=== PATIENT | female | born 1965 | race Caucasian/White ===

== ENCOUNTER 2017-06-13 20:15 | Emergency (ER) | payer MEDICAID ==
[~2017-06-13] VITALS: Ht 165.1 cm; Wt 52.5 kg
[2017-06-13 20:43] LABS: BASOPHILS % (AUTO) 0.7 % (0.0-2.0); EOSINOPHILS % (AUTO) 0.7 % (1.0-6.0); HEMATOCRIT 26.2 % (36-46); HEMOGLOBIN 7.7 g/dL (12.0-16.0); LYMPHOCYTES # (AUTO) 1.6 K/uL (1.0-4.8); LYMPHOCYTES % (AUTO) 18.9 % (22.0-44.0); MEAN CORPUSCULAR HEMOGLOBIN 16.1 pg (26.0-34.0); MEAN CORPUSCULAR HGB CONC 29.6 G/dL (31.0-37.0); MEAN CORPUSCULAR VOLUME 55 fL (80-100); MONOCYTES # (AUTO) 0.6 K/uL (0.1-1.0); MONOCYTES % (AUTO) 7.7 % (2.0-9.0); NEUTROPHILS # (AUTO) 5.9 K/uL (1.8-7.7); PLATELET COUNT (AUTO) 306 K/uL (150-450); RED CELL DISTRIBUTION WIDTH 18.4 % (11.5-14.5)
[2017-06-13 21:01] LABS: ANION GAP 7 mmol/L (8-16); CALCIUM, TOTAL 8.4 mg/dL (8.8-10.5); CARBON DIOXIDE 28 mmol/L (22-29); CHLORIDE 103 mmol/L (98-107); CREATININE 0.55 mg/dL (0.60-1.30); GLOMERULAR FILTR. RATE CALC > 60 mL/min (>60); GLUCOSE,RANDOM 113 mg/dL (70-110); POTASSIUM 3.4 mmol/L (3.5-5.1); SODIUM SERUM 138 mmol/L (136-145); UREA NITROGEN, BLOOD 7 mg/dL (7-18)
[2017-06-13 21:06] LABS: ALANINE AMINOTRANSFERASE 54 U/L (12-78); ALBUMIN 3.5 g/dL (3.4-5.0); ALKALINE PHOSPHATASE 117 U/L (46-116); ASPARTATE AMINOTRANSFERASE 105 U/L (15-37); BILIRUBIN,TOTAL 1.5 mg/dL (0.1-1.0); LIPASE 317 U/L (73-393); TOTAL PROTEIN, SERUM 7.1 g/dL (6.4-8.2)
[2017-06-13 21:20] LABS: APPEARANCE,URINE CLOUDY (CLEAR); BILIRUBIN,URINE NEGATIVE (NEGATIVE); GLUCOSE, URINE (UA) NEGATIVE (NEGATIVE); KETONES,URINE TRACE mg/dL (NEGATIVE); LEUKOCYTE ESTERASE ,URINE MODERATE (NEGATIVE); NITRATE,URINE NEGATIVE (NEGATIVE); OCCULT BLOOD,URINE TRACE (NEGATIVE); PROTEIN,URINE POS 1+ (NEGATIVE)
[2017-06-13] MEDS ORDERED: PB/HYOSCY/ATR/SCOP/LIDO/MAALOX 55 ML BOTTLE PO ONE (21:30)
[2017-06-13 21:31] LABS: BACTERIA,URINE Few /HPF (None Seen); SQUAMOUS EPITHELIAL CELL,UR Moderate /LPF (None Seen)
[2017-06-13 21:32] LABS: CALCIUM OXALATE CRYSTALS,UR Moderate /LPF (None Seen)
[2017-06-13] MEDS ORDERED: SOD FERRIC GLUC COMPLX/SUCROSE 125 MG in SODIUM CHLORIDE 0.9% 100 ML IV ONE (23:15)
[2017-06-13] MEDS ORDERED: DICYCLOMINE HCL 10 MG/ML 2 ML AMP IM ONE (23:30)
[2017-06-14 00:09] VITALS: BP 110/75
== END 2017-06-14 00:25 | disposition home or self-care (01) ==
LOC: EMS 20:16
DX: D64.9 Anemia, unspecified (principal); N39.0 Urinary tract infection, site not specified; R10.84 Generalized abdominal pain
CPT/HCPCS: 36415; 80053; 81001; 83690; 84703; 85025; 87077; 87086; 87186; 96365; 96372; 99284; J0500; J2916; J7050; Z7610; 86850; 86900; 86901

== ENCOUNTER 2019-04-27 23:16 | Inpatient (IN) | payer MEDICAID, OTHER ==
[~2019-04-27] VITALS: Ht 152.4 cm; Wt 51.5 kg
[~2019-04-27 23:16] MED LIST: ANUSHCS PR
[2019-04-27] MEDS ORDERED: 0.9% SODIUM CHLORIDE 10 ML SYRINGE IVP PRN (23:45)
[2019-04-28] VITALS (9 sets, daily range): BP systolic 96–140; BP diastolic 59–86
[2019-04-28 00:14] LABS: MONOCYTES # (AUTO) 0.5 K/uL (0.1-1.0)
[2019-04-28 00:18] LABS: BASOPHILS % (AUTO) 1.3 % (0.0-2.0); EOSINOPHILS % (AUTO) 1.9 % (1.0-6.0); HEMOGLOBIN 7.7 g/dL (12.0-16.0); LYMPHOCYTES # (AUTO) 2.4 K/uL (1.0-4.8); LYMPHOCYTES % (AUTO) 30.4 % (22.0-44.0); MEAN CORPUSCULAR HEMOGLOBIN 16.1 pg (26.0-34.0); MEAN CORPUSCULAR HGB CONC 29.6 G/dL (31.0-37.0); MEAN CORPUSCULAR VOLUME 54 fL (80-100); MONOCYTES % (AUTO) 5.9 % (2.0-9.0); NEUTROPHILS # (AUTO) 4.8 K/uL (1.8-7.7); NEUTROPHILS % (AUTO) 60.5 % (40.0-70.0); PLATELET COUNT (AUTO) 375 K/uL (150-450); RED BLOOD CELL COUNT(AUTO) 4.77 MIL/uL (4.00-5.20); RED CELL DISTRIBUTION WIDTH 20.1 % (11.5-14.5)
[2019-04-28 00:20] LABS: ANION GAP 5 mmol/L (8-16); CALCIUM, TOTAL 8.9 mg/dL (8.8-10.5); CARBON DIOXIDE 28 mmol/L (22-29); CHLORIDE 104 mmol/L (98-107); CREATININE 0.45 mg/dL (0.60-1.30); GLOMERULAR FILTR. RATE CALC > 60 mL/min (>60); GLUCOSE,RANDOM 91 mg/dL (70-110); SODIUM SERUM 137 mmol/L (136-145); UREA NITROGEN, BLOOD 8 mg/dL (7-18)
[2019-04-28 00:25] LABS: PROTHROMBIN TIME 10.4 SEC (9.4-11.6)
[2019-04-28 00:26] LABS: ALANINE AMINOTRANSFERASE 21 U/L (12-78); ALBUMIN 3.9 g/dL (3.4-5.0); ALKALINE PHOSPHATASE 80 U/L (46-116); ASPARTATE AMINOTRANSFERASE 15 U/L (15-37); BILIRUBIN,TOTAL 1.5 mg/dL (0.1-1.0); TOTAL PROTEIN, SERUM 7.6 g/dL (6.4-8.2)
[2019-04-28 00:41] LABS: B-TYPE NATRIURETIC PEPTIDE 11 pg/mL (0-100); LACTIC ACID 3.5 mmol/L (0.4-2.0)
[2019-04-28] MEDS: ACETAMINOPHEN 325 MG TABLET PO ONE ×3 (01:51→02:19)
[2019-04-28] MEDS ORDERED: METOCLOPRAMIDE HCL 5 MG/ML 2 ML VIAL IVP ONE (02:00)
[2019-04-28] MEDS ORDERED: SODIUM CHLORIDE 0.9% 1,000 ML IV ONE ×2 (02:15→05:00)
[2019-04-28] MEDS ORDERED: POTASSIUM CHLORIDE 20 MEQ ER TABLET PO ONE (02:30)
[2019-04-28] MEDS ORDERED: PANTOPRAZOLE SODIUM 40 MG/VIAL IVP ONE (04:00)
[2019-04-28 04:09] LABS: APPEARANCE,URINE CLEAR (CLEAR); BILIRUBIN,URINE NEGATIVE (NEGATIVE); GLUCOSE, URINE (UA) NEGATIVE (NEGATIVE); KETONES,URINE NEGATIVE (NEGATIVE); LEUKOCYTE ESTERASE ,URINE MODERATE (NEGATIVE); NITRATE,URINE NEGATIVE (NEGATIVE); OCCULT BLOOD,URINE NEGATIVE (NEGATIVE); PROTEIN,URINE NEGATIVE (NEGATIVE); UROBILINOGEN,URINE 0.2 mg/dL (<=1.0)
[2019-04-28] MEDS ORDERED: 0.9% SODIUM CHLORIDE 10 ML SYRINGE IVP PRN ×2 (04:15→07:00)
[2019-04-28] MEDS ORDERED: ACETAMINOPHEN 325 MG TABLET PO PRN ×3 (04:15→09:45)
[2019-04-28] MEDS ORDERED: ONDANSETRON HCL 4 MG/2 ML VIAL IVP PRN ×3 (04:15→09:45)
[2019-04-28 04:18] LABS: BACTERIA,URINE Rare /HPF (None Seen); RBC,URINE 0-2 /HPF (0-2); SQUAMOUS EPITHELIAL CELL,UR Moderate /LPF (None Seen); WBC,URINE 51-100 /HPF (0-5)
[2019-04-28] MEDS ORDERED: ZOLPIDEM TARTRATE 5 MG TABLET PO PRN (07:00)
[2019-04-28] MEDS ORDERED: POTASSIUM CHL 10 MEQ/WATER 50 ML IV PRN ×2 (07:15→10:00)
[2019-04-28] MEDS ORDERED: MAGNESIUM SULFATE 4 GM/WATER 100 ML IV PRN ×2 (07:15→10:00)
[2019-04-28] MEDS ORDERED: MAGNESIUM OXIDE 400 MG TABLET PO PRN ×2 (07:15→10:00)
[2019-04-28] MEDS ORDERED: POTASSIUM CHLORIDE 20 MEQ ER TABLET PO PRN ×2 (07:15→10:00)
[2019-04-28] MEDS ORDERED: MAGNESIUM SULFATE 2 GM/WATER 50 ML IV PRN ×2 (07:15→10:00)
[2019-04-28 07:38] LABS: HEMATOCRIT 21.7 % (36-46)
[2019-04-28 07:43] LABS: HEMOGLOBIN 6.3 g/dL (12.0-16.0)
[2019-04-28] MEDS ORDERED: PANTOPRAZOLE SODIUM 40 MG DR TABLET PO SCH (09:00)
[2019-04-28] MEDS ORDERED: ALBUTEROL SULFATE 2.5 MG/0.5 ML NEB SOLUTION NEB PRN (09:45)
[2019-04-28] MEDS ORDERED: PANTOPRAZOLE SODIUM 80 MG in SODIUM CHLORIDE 0.9% 100 ML IV SCH (09:45)
[2019-04-28] MEDS ORDERED: IPRATROPIUM BROMIDE 0.5 MG/2.5 ML NEB SOLUTION NEB PRN (09:45)
[2019-04-28 10:44] LABS: % IRON SATURATION 1.8 % (22-44); IRON, SERUM 8 mcg/dL (50-175); TOTAL IRON BINDING CAPACITY 426 mcg/dL (250-450)
[2019-04-28 11:10] LABS: FERRITIN 1 ng/mL (8-252)
[2019-04-28] MEDS: SODIUM CHLORIDE 0.9% 1,000 ML IV SCH ×2 (11:35→20:53)
[2019-04-28] MEDS ORDERED: PROPOFOL 1% 20 ML VIAL IVP ONE (12:00)
[2019-04-28 15:14] LABS: HEMATOCRIT 23.4 % (36-46)
[2019-04-28 15:32] LABS: HEMOGLOBIN 6.9 g/dL (12.0-16.0)
[2019-04-28] MEDS: POTASSIUM CHLORIDE 20 MEQ ER TABLET PO ONE ×2 (16:47→17:54)
[2019-04-28] MEDS ORDERED: PEG 3350/NA SULF,BICARB,CL/KCL 4000 ML SOLUTION PO ONE (17:00)
[2019-04-28] MEDS ORDERED: INFLUENZA VIRUS VACCINE QVS 2019-20 (3YR+)/PF 60 MCG/0.5 ML SYRINGE IM ONE (19:00)
[2019-04-28] MEDS: PANTOPRAZOLE SODIUM 40 MG/VIAL IVP SCH (20:53)
[2019-04-28 21:09] LABS: HEMATOCRIT 23.2 % (36-46)
[2019-04-28 21:20] LABS: HEMOGLOBIN 6.8 g/dL (12.0-16.0)
[2019-04-28] MEDS ORDERED: SODIUM CHLORIDE 0.9% 500 ML IV ONE (22:18)
[2019-04-29] VITALS (7 sets, daily range): BP systolic 103–117; BP diastolic 63–74
[2019-04-29 06:40] LABS: BASOPHILS % (AUTO) 1.8 % (0.0-2.0); EOSINOPHILS % (AUTO) 3.1 % (1.0-6.0); HEMATOCRIT 28.8 % (36-46); HEMOGLOBIN 8.7 g/dL (12.0-16.0); LYMPHOCYTES # (AUTO) 1.3 K/uL (1.0-4.8); LYMPHOCYTES % (AUTO) 25.6 % (22.0-44.0); MEAN CORPUSCULAR HEMOGLOBIN 17.9 pg (26.0-34.0); MEAN CORPUSCULAR HGB CONC 30.4 G/dL (31.0-37.0); MEAN CORPUSCULAR VOLUME 59 fL (80-100); MONOCYTES # (AUTO) 0.3 K/uL (0.1-1.0); MONOCYTES % (AUTO) 6.7 % (2.0-9.0); NEUTROPHILS # (AUTO) 3.3 K/uL (1.8-7.7); NEUTROPHILS % (AUTO) 62.8 % (40.0-70.0); PLATELET COUNT (AUTO) 283 K/uL (150-450); RED BLOOD CELL COUNT(AUTO) 4.88 MIL/uL (4.00-5.20); RED CELL DISTRIBUTION WIDTH 24.2 % (11.5-14.5)
[2019-04-29] MEDS ORDERED: SODIUM CHLORIDE 0.9% 1,000 ML IV SCH (07:00)
[2019-04-29 07:14] LABS: ALANINE AMINOTRANSFERASE 16 U/L (12-78); ALBUMIN 3.1 g/dL (3.4-5.0); ALKALINE PHOSPHATASE 65 U/L (46-116); ANION GAP 8 mmol/L (8-16); ASPARTATE AMINOTRANSFERASE 10 U/L (15-37); BILIRUBIN,TOTAL 2.5 mg/dL (0.1-1.0); CALCIUM, TOTAL 8.2 mg/dL (8.8-10.5); CARBON DIOXIDE 26 mmol/L (22-29); CHLORIDE 107 mmol/L (98-107); CREATININE 0.46 mg/dL (0.60-1.30); GLOMERULAR FILTR. RATE CALC > 60 mL/min (>60); GLUCOSE,RANDOM 86 mg/dL (70-110); POTASSIUM 3.7 mmol/L (3.5-5.1); SODIUM SERUM 141 mmol/L (136-145)
[2019-04-29 07:25] LABS: UREA NITROGEN, BLOOD 3 mg/dL (7-18)
[2019-04-29] MEDS ORDERED: FentaNYL CITRATE-PF 100 MCG/2 ML VIAL ONE (07:41)
[2019-04-29] MEDS ORDERED: MIDAZOLAM HCL 5 MG/ML VIAL ONE (07:42)
[2019-04-29] MEDS: TETRACYCLINE HCL 250 MG CAPSULE PO SCH ×3 (13:00→20:05)
[2019-04-29 14:44] LABS: HEMATOCRIT 27.7 % (36-46); HEMOGLOBIN 8.4 g/dL (12.0-16.0)
[2019-04-29] MEDS: MetroNIDAZOLE 500 MG TABLET PO SCH ×3 (15:37→20:05)
[2019-04-29] MEDS: BISMUTH SUBSALICYLATE 524 MG/30 ML SUSPENSION UDCUP PO PRN (15:39)
[2019-04-29] MEDS: SODIUM CHLORIDE 0.9% 1,000 ML IV SCH ×2 (15:40→15:59)
[2019-04-29] MEDS: PANTOPRAZOLE SODIUM 40 MG/VIAL IVP SCH ×2 (15:41→20:05)
[2019-04-29] MEDS: IRON SUCROSE COMPLEX 100 MG in SODIUM CHLORIDE 0.9% 100 ML IV SCH (17:43)
[2019-04-29] MEDS: HYDROCORTISONE 1% 30 GM OINTMENT TP SCH (20:05)
[2019-04-29 22:00] LABS: HEMATOCRIT 29.1 % (36-46); HEMOGLOBIN 8.8 g/dL (12.0-16.0)
[2019-04-30 00:06] VITALS: BP 111/53
[2019-04-30] MEDS: SODIUM CHLORIDE 0.9% 1,000 ML IV SCH ×3 (03:18→21:45)
[2019-04-30 04:14] VITALS: BP 100/65
[2019-04-30 06:28] LABS: BASOPHILS % (AUTO) 1.1 % (0.0-2.0); EOSINOPHILS % (AUTO) 1.7 % (1.0-6.0); HEMATOCRIT 27.3 % (36-46); HEMOGLOBIN 8.4 g/dL (12.0-16.0); LYMPHOCYTES # (AUTO) 1.2 K/uL (1.0-4.8); LYMPHOCYTES % (AUTO) 17.5 % (22.0-44.0); MEAN CORPUSCULAR HEMOGLOBIN 18.1 pg (26.0-34.0); MEAN CORPUSCULAR HGB CONC 30.7 G/dL (31.0-37.0); MEAN CORPUSCULAR VOLUME 59 fL (80-100); MONOCYTES # (AUTO) 0.6 K/uL (0.1-1.0); MONOCYTES % (AUTO) 8.5 % (2.0-9.0); NEUTROPHILS # (AUTO) 4.9 K/uL (1.8-7.7); NEUTROPHILS % (AUTO) 71.2 % (40.0-70.0); PLATELET COUNT (AUTO) 265 K/uL (150-450); RED BLOOD CELL COUNT(AUTO) 4.64 MIL/uL (4.00-5.20); RED CELL DISTRIBUTION WIDTH 24.8 % (11.5-14.5)
[2019-04-30 07:18] LABS: ALANINE AMINOTRANSFERASE 15 U/L (12-78); ALKALINE PHOSPHATASE 67 U/L (46-116); ANION GAP 6 mmol/L (8-16); ASPARTATE AMINOTRANSFERASE 8 U/L (15-37); BILIRUBIN,TOTAL 1.9 mg/dL (0.1-1.0); CALCIUM, TOTAL 8.2 mg/dL (8.8-10.5); CARBON DIOXIDE 28 mmol/L (22-29); CHLORIDE 104 mmol/L (98-107); CREATININE 0.49 mg/dL (0.60-1.30); GLOMERULAR FILTR. RATE CALC > 60 mL/min (>60); GLUCOSE,RANDOM 98 mg/dL (70-110); POTASSIUM 3.6 mmol/L (3.5-5.1); SODIUM SERUM 138 mmol/L (136-145); UREA NITROGEN, BLOOD 2 mg/dL (7-18)
[2019-04-30 07:21] VITALS: BP 101/60
[2019-04-30] MEDS: HYDROCORTISONE 1% 30 GM OINTMENT TP SCH ×2 (09:59→20:30)
[2019-04-30] MEDS: BISMUTH SUBSALICYLATE 524 MG/30 ML SUSPENSION UDCUP PO PRN (10:00)
[2019-04-30] MEDS: MetroNIDAZOLE 500 MG TABLET PO SCH ×4 (10:00→20:29)
[2019-04-30] MEDS: PANTOPRAZOLE SODIUM 40 MG/VIAL IVP SCH ×2 (10:00→20:29)
[2019-04-30] MEDS: TETRACYCLINE HCL 250 MG CAPSULE PO SCH ×4 (10:06→20:29)
[2019-04-30 11:02] VITALS: BP 102/69
[2019-04-30 12:47] LABS: HEMATOCRIT 27.9 % (36-46); HEMOGLOBIN 8.4 g/dL (12.0-16.0)
[2019-04-30] MEDS: IRON SUCROSE COMPLEX 100 MG in SODIUM CHLORIDE 0.9% 100 ML IV SCH (14:16)
[2019-04-30 15:42] VITALS: BP 111/63
[2019-04-30 19:39] VITALS: BP 111/76
[2019-05-01] VITALS (7 sets, daily range): BP systolic 97–112; BP diastolic 59–71
[2019-05-01] MEDS ORDERED: SODIUM PHOS/SODIUM BIPHOS 133 ML ENEMA PR ONE (08:00)
[2019-05-01] MEDS: TETRACYCLINE HCL 250 MG CAPSULE PO SCH ×4 (08:27→22:30)
[2019-05-01] MEDS: PANTOPRAZOLE SODIUM 40 MG/VIAL IVP SCH ×2 (08:27→20:19)
[2019-05-01] MEDS: MetroNIDAZOLE 500 MG TABLET PO SCH ×4 (08:27→20:20)
[2019-05-01] MEDS: HYDROCORTISONE 1% 30 GM OINTMENT TP SCH ×2 (08:28→22:24)
[2019-05-01 08:41] LABS: EOSINOPHILS % (AUTO) 6.5 % (1.0-6.0); LYMPHOCYTES # (AUTO) 1.6 K/uL (1.0-4.8); LYMPHOCYTES % (AUTO) 25.3 % (22.0-44.0); MEAN CORPUSCULAR HEMOGLOBIN 18.3 pg (26.0-34.0); MEAN CORPUSCULAR HGB CONC 30.6 G/dL (31.0-37.0); MEAN CORPUSCULAR VOLUME 60 fL (80-100); MONOCYTES # (AUTO) 0.6 K/uL (0.1-1.0); MONOCYTES % (AUTO) 9.2 % (2.0-9.0); NEUTROPHILS # (AUTO) 3.6 K/uL (1.8-7.7); PLATELET COUNT (AUTO) 238 K/uL (150-450); RED BLOOD CELL COUNT(AUTO) 4.71 MIL/uL (4.00-5.20); RED CELL DISTRIBUTION WIDTH 23.7 % (11.5-14.5)
[2019-05-01 08:42] LABS: HEMATOCRIT 27.9 % (36-46); HEMOGLOBIN 8.5 g/dL (12.0-16.0)
[2019-05-01 08:44] LABS: ANION GAP 7 mmol/L (8-16); CALCIUM, TOTAL 8.1 mg/dL (8.8-10.5); CARBON DIOXIDE 28 mmol/L (22-29); CHLORIDE 107 mmol/L (98-107); CREATININE 0.35 mg/dL (0.60-1.30); GLOMERULAR FILTR. RATE CALC > 60 mL/min (>60); GLUCOSE,RANDOM 96 mg/dL (70-110); POTASSIUM 3.7 mmol/L (3.5-5.1); SODIUM SERUM 142 mmol/L (136-145); UREA NITROGEN, BLOOD 5 mg/dL (7-18)
[2019-05-01] MEDS: SODIUM CHLORIDE 0.9% 1,000 ML IV SCH (08:46)
[2019-05-01] MEDS ORDERED: BUPIVACAINE HCL/PF 0.5% 30 ML VIAL ONE (09:33)
[2019-05-01] MEDS ORDERED: LIDOCAINE 2%/EPI 1:200,000/PF 20 ML VIAL ONE (09:33)
[2019-05-01] MEDS ORDERED: GELATIN SPONGE,ABSORBABLE 100 MM TP ONE ×2 (09:34→09:36)
[2019-05-01] MEDS ORDERED: GELATIN SPONGE,ABSORBABLE 50 MM TP ONE (09:38)
[2019-05-01] MEDS ORDERED: RINGERS SOLUTION,LACTATED 1,000 ML IV ONE (09:40)
[2019-05-01] MEDS ORDERED: RINGERS SOLUTION,LACTATED 1,000 ML IV SCH (10:00)
[2019-05-01] MEDS ORDERED: BUPIVACAINE 0.25%/EPI 1:200,000/PF 10 ML VIAL ONE (13:33)
[2019-05-01] MEDS ORDERED: MEPERIDINE-PF 25 MG/ML VIAL IVP PRN (15:00)
[2019-05-01] MEDS ORDERED: FentaNYL CITRATE-PF 100 MCG/2 ML VIAL IVP PRN (15:00)
[2019-05-01] MEDS ORDERED: HYDROmorphone 2 MG/ML SYRINGE IVP PRN ×2 (15:00→16:00)
[2019-05-01] MEDS ORDERED: MetroNIDAZOLE 500 MG/NACL 100 ML IV STA (15:01)
[2019-05-01] MEDS ORDERED: MEPERIDINE-PF 25 MG/ML VIAL ONE (15:51)
[2019-05-01] MEDS ORDERED: CeFAZolin 2 GM/DEXTROSE 50 ML IV SCH ×2 (16:00→22:00)
[2019-05-01] MEDS ORDERED: MORPHINE SULFATE 4 MG/ML SYRINGE IVP PRN (16:00)
[2019-05-01] MEDS: IRON SUCROSE COMPLEX 100 MG in SODIUM CHLORIDE 0.9% 100 ML IV SCH (16:45)
[2019-05-01] MEDS: ONDANSETRON HCL 4 MG/2 ML VIAL IVP PRN (17:39)
[2019-05-01] MEDS: MINERAL OIL 30 ML UDCUP PO SCH ×2 (18:33→20:20)
[2019-05-01] MEDS: FAMOTIDINE 20 MG TABLET PO SCH (20:20)
[2019-05-01] MEDS: OXYGEN THERAPY IH SCH (20:23)
[2019-05-01] MEDS: CeFAZolin 2 GM/DEXTROSE 50 ML IV SCH (22:30)
[2019-05-01] MEDS: MetroNIDAZOLE 500 MG/NACL 100 ML IV SCH (23:09)
[2019-05-02] MEDS: HYDROCODONE/ACETAMINOPHEN 5-325 MG TABLET PO PRN ×3 (01:42→15:37)
[2019-05-02] MEDS: ONDANSETRON HCL 4 MG/2 ML VIAL IVP PRN (01:42)
[2019-05-02] MEDS: SODIUM CHLORIDE 0.9% 1,000 ML IV SCH ×2 (01:43→12:25)
[2019-05-02 04:02] VITALS: BP 99/55
[2019-05-02] MEDS ORDERED: DEXAMETHASONE SOD PHOS 4 MG/ML VIAL IVP ONE (05:50)
[2019-05-02] MEDS ORDERED: FentaNYL CITRATE-PF 100 MCG/2 ML VIAL IVP ONE (05:50)
[2019-05-02] MEDS ORDERED: ONDANSETRON HCL 4 MG/2 ML VIAL IVP ONE (05:50)
[2019-05-02] MEDS ORDERED: LIDOCAINE/PF 2% 5 ML SYRINGE IVP ONE (05:50)
[2019-05-02] MEDS ORDERED: PROPOFOL 1% 20 ML VIAL IVP ONE (05:50)
[2019-05-02] MEDS ORDERED: ROCURONIUM BROMIDE 10 MG/ML 5 ML VIAL IVP ONE (05:50)
[2019-05-02] MEDS: CeFAZolin 2 GM/DEXTROSE 50 ML IV SCH (06:04)
[2019-05-02] MEDS: MetroNIDAZOLE 500 MG/NACL 100 ML IV SCH (06:43)
[2019-05-02 07:23] VITALS: BP 97/52
[2019-05-02] MEDS: OXYGEN THERAPY IH SCH (08:00)
[2019-05-02 08:21] VITALS: BP 99/62
[2019-05-02] MEDS: MetroNIDAZOLE 500 MG TABLET PO SCH ×3 (08:33→15:29)
[2019-05-02] MEDS: PANTOPRAZOLE SODIUM 40 MG/VIAL IVP SCH (08:33)
[2019-05-02] MEDS: TETRACYCLINE HCL 250 MG CAPSULE PO SCH ×3 (08:34→15:30)
[2019-05-02] MEDS: FAMOTIDINE 20 MG TABLET PO SCH (08:34)
[2019-05-02] MEDS: MINERAL OIL 30 ML UDCUP PO SCH ×2 (08:34→15:30)
[2019-05-02] MEDS: HYDROCORTISONE 1% 30 GM OINTMENT TP SCH (08:34)
[2019-05-02 11:56] VITALS: BP 97/64
[2019-05-02] MEDS: IRON SUCROSE COMPLEX 100 MG in SODIUM CHLORIDE 0.9% 100 ML IV SCH (13:05)
[2019-05-02 15:43] VITALS: BP 113/65
[2019-05-02] MEDS ORDERED: DOCU-275 PO (15:52)
[2019-05-02] MEDS ORDERED: FERR-89 PO (15:52)
[2019-05-02] MEDS ORDERED: FAMO20 PO (15:53)
[2019-05-02] MEDS ORDERED: [UNRECOGNIZED DRUG - CODE] PO (15:55)
== END 2019-05-02 17:40 | disposition home or self-care (01) | DRG 347 ==
LOC: EMS 23:17 → 5S 04-28 10:07
PROVIDERS: ADMIT Internal Medicine; ATTEND Internal Medicine
PROC: 30233N1 Transfusion of Nonautologous Red Blood Cells into Peripheral Vein, Percutaneous Approach (ICD-10-PCS; principal; 2019-04-28)
PROC: 0DB58ZX Excision of Esophagus, Via Natural or Artificial Opening Endoscopic, Diagnostic (ICD-10-PCS; 2019-04-29)
PROC: 0DJD8ZZ Inspection of Lower Intestinal Tract, Via Natural or Artificial Opening Endoscopic (ICD-10-PCS; 2019-04-29)
PROC: 0DB68ZX Excision of Stomach, Via Natural or Artificial Opening Endoscopic, Diagnostic (ICD-10-PCS; 2019-04-29)
PROC: 06BY0ZC Excision of Hemorrhoidal Plexus, Open Approach (ICD-10-PCS; 2019-05-01)
DX: K64.8 Other hemorrhoids (principal); K26.4 Chronic or unspecified duodenal ulcer with hemorrhage; K62.5 Hemorrhage of anus and rectum; B37.81 Candidal esophagitis; D50.0 Iron deficiency anemia secondary to blood loss (chronic); K26.9 Duodenal ulcer, unspecified as acute or chronic, without hemorrhage or perforation; K57.30 Diverticulosis of large intestine without perforation or abscess without bleeding; L53.9 Erythematous condition, unspecified; E87.6 Hypokalemia; K64.4 Residual hemorrhoidal skin tags; Z80.49 Family history of malignant neoplasm of other genital organs; Z80.41 Family history of malignant neoplasm of ovary; Z87.11 Personal history of peptic ulcer disease
CPT/HCPCS: 70450; 82247; 82248; 82270; 82271; 82728; 83540; 83550; 83605; 83735; 84132; 84145; 85014; 85018; 85651; 86850; 86870; 86880; 86900; 86901; 86904; 86922; 86999; 87040; 87086; 88304; 88305; 88312; 88313; 93005; 93306; 96365; 97161; C9113; J0690; J1100; J1170; J1756; J2175; J2250; J2405; J2704; J2765; J3010; J3490; J7030; J7040; J7050; J7120; P9016